=== PATIENT | male | born 1980 ===

== ENCOUNTER 2021-09-18 19:53 | Emergency (ER) | payer SELFPAY ==
[2021-09-18] MEDS ORDERED: NA CHLORIDE 0.9% 1,000 ML ONE ×2 (20:40→22:24)
[2021-09-18] MEDS ORDERED: MORPHINE 4 MG/ML SYR ONE ×2 (20:40→23:25)
[2021-09-18] MEDS ORDERED: FAMOTIDINE 20 MG/2 ML VIAL IV ONE (20:40)
[2021-09-18] MEDS ORDERED: ONDANSETRON 4 MG/2 ML VIAL ONE (20:40)
[2021-09-18 20:47] LABS: Absolute Lymphocytes (CBC) 0.9 K/uL (0.7-4.9); Hematocrit 49.3 % (39.6-49.0); Lymphocytes % 8.9 % (15.3-44.8); MPV 9.1 fL (7.6-11.3); RBC Red Blood Cell Count 6.02 M/uL (4.33-5.43)
[2021-09-18 21:04] LABS: Bilirubin Total 0.9 mg/dL (0.2-1.0); Magnesium 1.6 mg/dL (1.8-2.4); Potassium 3.9 mmol/L (3.5-5.1); Protein, Total 7.7 g/dL (6.4-8.2); Troponin High Sensitivity 5.6 pg/mL (<58.9)
--- NOTE | 2021-09-18 21:11 | RAD REPORT ---
EXAM DESCRIPTION: RAD - Chest Single View - 09/18/2021 8:32 pm CLINICAL HISTORY: CHEST PAIN COMPARISON: None available TECHNIQUE: AP portable chest image was obtained 09/18/2021 8:32 pm . FINDINGS: Lungs are clear. Heart and vasculature are normal. No measurable pleural effusion and no p neumothorax. No acute bony abnormality seen. No acute aortic findings suspected. IMPRESSION: No acute cardiopulmonary process.
[2021-09-18 21:20] LABS: SARS-COV-2 RT PCR NEGATIVE (NEGATIVE)
--- NOTE | 2021-09-18 22:04 | RAD REPORT ---
EXAM DESCRIPTION: CT - Abdomen Pelvis W Contrast - 09/18/2021 9:55 pm CLINICAL HISTORY: Abdominal pain, acute, nonlocalized COMPARISON: Head Brain Wo Cont dated 05/02/2020No comparisons TECHNIQUE: Biphasic, helical CT imaging of the abdomen and pelvis was performed following 100 ml non -ionic IV contrast. No oral contrast administered. All CT scans are performed using dose optimization technique as appropriate and may include automated exposure control or mA/KV adjustment according to patient size. FINDINGS: No suspicious findings in the lung bases. The liver, spleen, and pancreas show no suspicious focal findings. Diffuse fatty infiltration of the liver is present. No gallbladder or biliary tree abnormality. Symmetric renal function is seen with no hydronephrosis or suspicious renal mass. No pyelonephritis o r acute parenchymal process. No bladder abnormalities. No adrenal abnormalities. Food and fluid fill but do not dilate the stomach. No gastric wall thickening or mass identified. No small bowel dilatation. There are fluid-filled small bowel loops present. Appendix is normal range. F luid is present in the nondilated colon. No free air, free fluid or inflammatory stranding. No henrique ia, mass or bulky lymphadenopathy. No suspicious bony findings. IMPRESSION: Contrast enhanced CT abdomen and pelvis showing no emergent finding. Bowel gas pattern is consistent with a nonspecific enteritis. No appendicitis findings. Fatty infiltration of the liver.
[2021-09-18] MEDS ORDERED: MAGNESIUM SULFATE 1 gm IVPB 1 GM/100 ML BAG IV ONE (22:24)
[2021-09-18 22:35] LABS: Urine Blood Negative (Negative); Urine Glucose Negative (Negative); Urine Protein Negative (Negative); Urine Specific Gravity 1.015 (1.005-1.030); Urine pH 8.5 (5.0-7.0)
[2021-09-18 22:53] LABS: Urine RBC <5 /HPF (NONE SEEN)
[2021-09-18 22:54] LABS: Urine Bacteria NONE SEEN /HPF (NONE SEEN)
[2021-09-18] MEDS ORDERED: DICYCLOMINE HCL 10 MG CAP ONE (23:25)
[2021-09-18] MEDS ORDERED: PROMETHAZINE INJ 25 MG/ML AMP ONE (23:25)
--- NOTE | 2021-09-19 00:04 | EDPHYS ---
Physician Documentation [facility] Name: Jose G Marie Age: 41 yrs Sex: Male : 1980 Arrival Date: 09/18/2021 Time: 19:58 Bed 14 Private MD: ED Physician Austin Gong HPI: 09/18 20:25 This 41 yrs old Male presents to ER via EMS with complaints of Vomiting and Diarrhea. cp 20:25 The patient presents to the emergency department with nausea, with "dry heaves", cp vomiting, that is continuous, diarrhea, that is continuous, abdominal pain, of the abdomen diffusely. 20:25 Onset: The symptoms/episode began/occurred yesterday, and became worse today. Possible cp causes: unknown. Associated signs and symptoms: Pertinent positives: abdominal pain, anorexia, Pertinent negatives: constipation, fever, GI bleeding. Severity of symptoms: in the emergency department the symptoms are unchanged despite home interventions. Historical: - Allergies: 20:00 No Known Allergies; sm5 - Home Meds: 20:00 None [Active]; sm5 - PMHx: 20:00 None; sm5 - Immunization history:: Client reports receiving the 2nd dose of the Covid vaccine, Flu vaccine is not up to date. - Social history:: Smoking status: Patient denies any tobacco usage or history of. ROS: 20:30 Constitutional: Positive for poor PO intake, Negative for body aches, chills, fever. cp 20:30 Eyes: Negative for injury, pain, redness, and discharge. cp 20:30 ENT: Negative for drainage from ear(s), ear pain, sore throat, difficulty swallowing, difficulty handling secretions. 20:30 Cardiovascular: Negative for chest pain. 20:30 Respiratory: Negative for cough, shortness of breath, wheezing. 20:30 Abdomen/GI: Positive for abdominal pain, nausea, vomiting, and diarrhea, anorexia, Negative for hematemesis, black/tarry stool, rectal bleeding. 20:30 : Negative for urinary symptoms, testicular pain 20:30 Neuro: Negative for altered mental status, headache, weakness. 20:30 All other systems are negative. Exam: 20:35 Constitutional: The patient appears in no acute distress, alert, awake, cp non-diaphoretic, non-toxic, well developed, well nourished, uncomfortable. 20:35 Head/Face: Normocephalic, atraumatic. cp 20:35 Eyes: Periorbital structures: appear normal, Conjunctiva: normal, no exudate, no cp injection, Sclera: no appreciated abnormality, Lids and lashes: appear normal, bilaterally. 20:35 ENT: External ear(s): are unremarkable, Nose: is normal, Mouth: Lips: moist, Oral mucosa: pink and intact, moist, Posterior pharynx: Airway: no evidence of obstruction, patent. 20:35 Neck: ROM/movement: is normal, is supple, without pain, no range of motions limitations. 20:35 Chest/axilla: Inspection: normal, Palpation: is normal, no crepitus, no tenderness. 20:35 Cardiovascular: Rate: normal, Rhythm: regular. cp 20:35 Respiratory: the patient does not display signs of respiratory distress, Respirations: normal, no use of accessory muscles, no retractions, labored breathing, is not present, Breath sounds: are clear throughout, no decreased breath sounds, no stridor, no wheezing. 20:35 Abdomen/GI: Inspection: abdomen appears normal, Bowel sounds: active, all quadrants, Palpation: soft, in all quadrants, severe abdominal tenderness, in all quadrants, rebound tenderness, is not appreciated, voluntary guarding, is elicited in all quadrants. 20:35 Back: CVA tenderness, is absent. 20:35 Skin: no rash present. 20:35 Neuro: Orientation: to person, place \\T\\ time. Mentation: is normal, Motor: moves all fours, strength is normal, Sensation: is normal. 21:33 ECG was reviewed by the Attending Physician. cp Vital Signs: 19:58 BP 142 / 99; Pulse 92; Resp 20; Temp 99(O); Pulse Ox 100% on R/A; Weight 131.54 kg; sm5 Height 6 ft. 3 in. (190.50 cm); Pain 9/10; 21:00 BP 141 / 79; Pulse 98; Resp 18; Pulse Ox 99% on R/A; sm5 22:00 BP 98 / 81; Pulse 105; Resp 16; Pulse Ox 100% on R/A; sm5 23:00 BP 121 / 87; Pulse 87; Resp 16; Pulse Ox 98% on R/A; sm5 23:00 BP 129 / 79; Pulse 88; Resp 15; Pulse Ox 97% on R/A; 5 19:58 Body Mass Index 36.25 (131.54 kg, 190.50 cm) [facility] MDM: 20:18 Patient medically screened. cp 21:00 Differential diagnosis: gastritis, cholecystitis, pancreatitis, appendicitis, cp diverticulitis, viral gastroenteritis, gastroenteritis. 09/19 00:00 Data reviewed: vital signs, nurses notes, lab test result(s), EKG, radiologic studies, cp CT scan, plain films. 00:00 Test interpretation: by ED physician or midlevel provider: ECG, plain radiologic cp studies. Counseling: I had a detailed discussion with the patient and/or guardian regarding: the historical points, exam findings, and any diagnostic results supporting the discharge/admit diagnosis, lab results, radiology results, to return to the emergency department if symptoms worsen or persist or if there are any questions or concerns that arise at home. Response to treatment: the patient's symptoms have markedly improved after treatment, and as a result, I will discharge patient. Special discussion: Based on the patient's Hx, exam, and Dx evaluation, there is no indication for emergent surgery or inpatient Tx. It is understood by the patient/guardian that if the Sx's persist or worsen they need to return immediately for re-evaluation. ED course: VSS. Pain and nausea markedly improved. Vomiting resolved and patient observed tolerating po fluids. Will discharge to home for continued monitoring. 09/18 20: Order name: CBC with Diff; Complete Time: 21:25 cp 09/18 21:25 Interpretation: Normal except: RBC 6.02; HCT 49.3; BECKY% 80.5; LYM% 8.9. cp 09/18 20: Order name: CMP; Complete Time: 21:25 cp 09/18 22:52 Interpretation: Normal except: GLUC 112; CRE 1.35; GFR 59; AST 39; GLOB 3.7. cp 09/19 19: Order name: Lipase; Complete Time: 21:25 cp 09/18 20:21 Order name: Urine Microscopic Only; Complete Time: 23:46 cp 09/18 20: Order name: Troponin HS; Complete Time: 21:25 cp 09/18 20:21 Order name: COVID-19/FLU A+B (Document "Date of Onset" if Symptomatic); Complete Time: cp 21:25 09/18 20:21 Order name: CT Abd/Pelvis - IV Contrast Only; Complete Time: 22:12 cp 09/18 20:21 Order name: XRAY Chest (1 view); Complete Time: 21:25 cp 09/18 20:21 Order name: Magnesium; Complete Time: 21:25 cp 09/18 22:36 Order name: Urine Dipstick-Ancillary; Complete Time: 22:50 EDMS 09/18 22:51 Interpretation: Normal except: UPH 8.5. cp 09/18 20:21 Order name: IV Saline Lock; Complete Time: 20:43 cp 09/18 20:21 Order name: Labs collected and sent; Complete Time: 20:43 cp 09/18 20:21 Order name: EKG; Complete Time: 20:22 cp 09/18 20:21 Order name: EKG - Nurse/Tech; Complete Time: 21:31 cp 09/18 22:17 Order name: PO challenge; Complete Time: 22:35 cp EC/24 21:33 Rate is 103 beats/min. Rhythm is regular. OH interval is normal. QRS interval is cp normal. QT interval is normal. T waves are Inverted in leads III, aVR. Interpreted by me. Reviewed by me. Administered Medications: 20:43 Drug: NS 0.9% 1000 ml Route: IV; Rate: 1 bolus; Site: left antecubital; 5 21:40 Follow up: IV Status: Completed infusion; IV Intake: 1000ml sm5 20:43 Drug: Pepcid (famotidine) 20 mg Route: IVP; Site: left antecubital; 5 22:26 Follow up: Response: No adverse reaction 5 20:43 Drug: Zofran (Ondansetron) 4 mg Route: IVP; Site: left antecubital; sm5 22:26 Follow up: Response: Nausea is decreased 5 20:43 Drug: morphine 4 mg Route: IVP; Site: left antecubital; 5 22:26 Follow up: Response: Pain is decreased sm5 22:29 Drug: Magnesium Sulfate 1 grams Route: IVPB; Infused Over: 1 hrs; Site: left 5 antecubital; 23:53 Follow up: IV Status: Completed infusion; IV Intake: 100ml sm5 22:29 Drug: NS 0.9% 1000 ml Route: IV; Rate: 1 bolus; Site: left antecubital; 5 23:53 Follow up: IV Status: Completed infusion; IV Intake: 1000ml 5 23:32 Drug: morphine 4 mg Route: IVP; Site: left antecubital; 5 09/19 00:17 Follow up: Response: Pain is decreased 5 09/18 23:33 Drug: Phenergan (promethazine) 25 mg Route: IVP; Site: left antecubital; 5 09/19 00:17 Follow up: Response: Nausea is decreased 5 00:17 Drug: Bentyl (dicyclomine) 20 mg Route: PO; 5 00:17 Follow up: Response: No adverse reaction 5 Disposition: 06:14 Co-signature as Attending Physician, Austin Gong MD I agree with the assessment and kdr plan of care. Disposition Summary: 09/19/21 00:03 Discharge Ordered Location: Home cp Problem: new cp Symptoms: have improved cp Condition: Stable cp Diagnosis - Nausea with vomiting, unspecified cp - Diarrhea, unspecified cp Followup: cp - With: Jose Pickard MD - When: 2 - 3 days - Reason: Recheck today's complaints Discharge Instructions: - Discharge Summary Sheet cp - Food Choices to Help Relieve Diarrhea, Adult cp - Diarrhea, Adult cp - Nausea and Vomiting, Adult cp Forms: - Medication Reconciliation Form cp - Thank You Letter cp - Antibiotic Education cp - Prescription Opioid Use cp - Work release form mw2 Prescriptions: - promethazine 25 mg Oral Tablet - take 1 tablet by ORAL route every 6 hours As needed; 20 tablet; Refills: 0, cp Product Selection Permitted - dicyclomine 20 mg Oral Tablet - take 1 tablet by ORAL route 4 times per day; 30 tablet; Refills: 0, Product cp Selection Permitted Signatures: Dispatcher [employer] EDMS Austin Gong MD MD kdr Page, Corey, PA PA cp Charisma Pavon RN RN sm5 Camelia Ortiz PA PA sb3 Corrections: (The following items were deleted from the chart) 00:47 09/18 21:25 This 41 yrs old Male presents to ER via EMS with complaints of Vomiting and cp Diarrhea. cp
--- NOTE | 2021-09-19 00:04 | ER ---
Nurse's Notes [facility] Name: Jose G Marie Age: 41 yrs Sex: Male : 1980 Arrival Date: 09/18/2021 Time: 19:58 Bed 14 Private MD: Diagnosis: Nausea with vomiting, unspecified;Diarrhea, unspecified Presentation: 09/18 19:58 Chief complaint: EMS states: he started having diarrhea yesterday and now having sm5 diarrhea and nausea and vomiting all day. states his body hurts all over. Coronavirus screen: Vaccine status: Patient reports receiving the 2nd dose of the covid vaccine. Ebola Screen: No symptoms or risks identified at this time. Initial Sepsis Screen: Does the patient meet any 2 criteria? No. Patient's initial sepsis screen is negative. Does the patient have a suspected source of infection? No. Patient's initial sepsis screen is negative. Risk Assessment: Do you want to hurt yourself or someone else? Patient reports no desire to harm self or others. Onset of symptoms was September 17, 2021. 19:58 Method Of Arrival: EMS: [facility] 19:58 Acuity: BIMAL 3 sm5 Triage Assessment: 20:00 General: Appears in no apparent distress. Behavior is anxious. Pain: Complains of pain sm5 in abdomen. Neuro: No deficits noted. Level of Consciousness is awake, alert, obeys commands, Oriented to person, place, time, situation. Cardiovascular: No deficits noted. Capillary refill < 3 seconds Patient's skin is warm and dry. Respiratory: No deficits noted. Airway is patent Trachea midline Respiratory effort is even, unlabored. GI: Reports lower abdominal pain, upper abdominal pain, diarrhea, nausea, vomiting. Historical: - Allergies: 20:00 No Known Allergies; sm5 - Home Meds: 20:00 None [Active]; sm5 - PMHx: 20:00 None; sm5 - Immunization history:: Client reports receiving the 2nd dose of the Covid vaccine, Flu vaccine is not up to date. - Social history:: Smoking status: Patient denies any tobacco usage or history of. Screenin:01 Abuse screen: Denies threats or abuse. Denies injuries from another. Nutritional sm5 screening: No deficits noted. Tuberculosis screening: No symptoms or risk factors identified. Fall Risk None identified. Assessment: 21:00 Reassessment: Patient states symptoms have improved. see triage assessment. [facility] 21:59 Reassessment: No changes from previously documented assessment. [facility] 09/19 00:05 Reassessment: pt unable to give a stool sample. 5 00:17 Reassessment: No changes from previously documented assessment. Patient and/or family [facility] updated on plan of care and expected duration. Pain level reassessed. Vital Signs: 09/18 19:58 BP 142 / 99; Pulse 92; Resp 20; Temp 99(O); Pulse Ox 100% on R/A; Weight 131.54 kg; 5 Height 6 ft. 3 in. (190.50 cm); Pain 9/10; 21:00 BP 141 / 79; Pulse 98; Resp 18; Pulse Ox 99% on R/A; sm5 22:00 BP 98 / 81; Pulse 105; Resp 16; Pulse Ox 100% on R/A; sm5 23:00 BP 121 / 87; Pulse 87; Resp 16; Pulse Ox 98% on R/A; sm5 23:00 BP 129 / 79; Pulse 88; Resp 15; Pulse Ox 97% on R/A; 5 19:58 Body Mass Index 36.25 (131.54 kg, 190.50 cm) [facility] ED Course: 19:58 Patient arrived in ED. 5 20:00 Triage completed. 5 20:01 Arm band placed on right wrist. 5 20:01 Patient has correct armband on for positive identification. Bed in low position. Call [facility] light in reach. Side rails up X2. Pulse ox on. NIBP on. 20:01 Maintain EMS IV. Dressing intact. Good blood return noted. Site clean \\T\\ dry. Gauge \\T\\ 5 site: 20G R AC. 20:13 Cesar Erwin PA is PHCP. cp 20:13 Austin Gong MD is Attending Physician. cp 20:22 Charisma Pavon, CLAYTON is Primary Nurse. 5 20:34 XRAY Chest (1 view) In Process Unspecified. EDMS 20:43 Troponin HS Sent. 5 20:43 COVID-19/FLU A+B (Document "Date of Onset" if Symptomatic) Sent. sm5 20:43 Magnesium Sent. sm5 20:43 CBC with Diff Sent. sm5 20:43 CMP Sent. sm5 20:43 Lipase Sent. sm5 21:57 CT Abd/Pelvis - IV Contrast Only In Process Unspecified. EDMS 22:36 Urine Microscopic Only Sent. sm5 09/19 00:02 Jose Pickard MD is Referral Physician. cp 00:17 No provider procedures requiring assistance completed. IV discontinued, intact, sm5 bleeding controlled, No redness/swelling at site. Pressure dressing applied. Administered Medications: 09/18 20:43 Drug: NS 0.9% 1000 ml Route: IV; Rate: 1 bolus; Site: left antecubital; sm5 21:40 Follow up: IV Status: Completed infusion; IV Intake: 1000ml sm5 20:43 Drug: Pepcid (famotidine) 20 mg Route: IVP; Site: left antecubital; sm5 22:26 Follow up: Response: No adverse reaction sm5 20:43 Drug: Zofran (Ondansetron) 4 mg Route: IVP; Site: left antecubital; sm5 22:26 Follow up: Response: Nausea is decreased sm5 20:43 Drug: morphine 4 mg Route: IVP; Site: left antecubital; sm5 22:26 Follow up: Response: Pain is decreased sm5 22:29 Drug: Magnesium Sulfate 1 grams Route: IVPB; Infused Over: 1 hrs; Site: left sm5 antecubital; 23:53 Follow up: IV Status: Completed infusion; IV Intake: 100ml sm5 22:29 Drug: NS 0.9% 1000 ml Route: IV; Rate: 1 bolus; Site: left antecubital; sm5 23:53 Follow up: IV Status: Completed infusion; IV Intake: 1000ml sm5 23:32 Drug: morphine 4 mg Route: IVP; Site: left antecubital; sm5 09/19 00:17 Follow up: Response: Pain is decreased sm5 09/18 23:33 Drug: Phenergan (promethazine) 25 mg Route: IVP; Site: left antecubital; sm5 09/19 00:17 Follow up: Response: Nausea is decreased sm5 00:17 Drug: Bentyl (dicyclomine) 20 mg Route: PO; sm5 00:17 Follow up: Response: No adverse reaction sm5 Intake: 09/18 21:40 IV: 1000ml; Total: 1000ml. sm5 23:53 IV: 1000ml; Total: 2000ml. sm5 23:53 IV: 100ml; Total: 2100ml. sm5 Outcome: 09/19 00:03 Discharge ordered by . cp 00:20 Discharged to home ambulatory, with family. sm5 00:20 Condition: stable 00:20 Discharge instructions given to patient, family, Instructed on discharge instructions, follow up and referral plans. medication usage, Demonstrated understanding of instructions, follow-up care, medications, Prescriptions given X 2. 00:25 Patient left the ED. sm5 Signatures: Dispatcher [employer] EDMS Cesar Erwin PA PA cp Mazur, Sarah, RN RN sm5
[2021-09-19 00:32] VITALS: TEMP 99
[2021-09-19 00:37] VITALS: BP 129/79; O2SAT 97
== END 2021-09-19 00:25 | disposition home or self-care (01) ==
LOC: ER 19:53
DX: R11.2 Nausea with vomiting, unspecified (principal); R19.7 Diarrhea, unspecified; Z20.822 Contact with and (suspected) exposure to COVID-19
CPT/HCPCS: 0240U; 36415; 71045; 74177; 80053; 81003; 81015; 83690; 83735; 84484; 85025; 93005; 96361; 96365; 96375; 99284; J2405; J2550; J3475; J3490; J7030; Q9967